=== PATIENT | female | born 1980 | race Caucasian/White ===

== ENCOUNTER 2017-11-15 14:19 | Emergency (ER) | payer OTHER ==
[~2017-11-15] VITALS: Ht 162.6 cm; Wt 55.8 kg
[2017-11-15] MEDS ORDERED: SYNTHROID75 MCG (14:48)
== END 2017-11-15 18:48 | disposition home or self-care (01) ==
LOC: ER 14:19
DX: R10.11 Right upper quadrant pain (principal)

== ENCOUNTER 2018-04-15 08:49 | Outpatient (CLI) | payer OTHER ==
[~2018-04-15 08:49] MED LIST: SYNTHROID75 MCG
== END 2018-04-15 08:53 | disposition home or self-care (01) ==
LOC: SONOGRAMA 08:49
DX: R22.1 Localized swelling, mass and lump, neck (principal)